=== PATIENT | female | born 1955 | race African-American/Black ===

== ENCOUNTER 2018-07-21 12:23 | Emergency (ER) | payer BC ==
[~2018-07-21] VITALS: Ht 162.6 cm; Wt 132.0 kg
[2018-07-21] MEDS ORDERED: AMLO5TAB4 PO (12:35)
[2018-07-21] MEDS ORDERED: ATEN50TA PO (12:35)
[2018-07-21] MEDS ORDERED: AMLODIPINE 5MG TABLET PO ONE (13:00)
[2018-07-21 13:14] LABS: BASOPHILS % 0.8 % (0.0-2.0); EOSINOPHILS % 0.3 % (0.0-5.0); HEMATOCRIT. 42.6 % (36.0-48.0); HEMOGLOBIN. 14.2 g/dL (12.0-16.0); LYMPHOCYTES % 17.6 % (20.0-50.0); MEAN CORPUSCULAR HEMOGLOBIN 29.5 pg (28.0-32.0); MEAN CORPUSCULAR VOLUME 88.6 fL (81.0-99.0); MEAN PLATELET VOLUME 7.3 fl (7.4-10.4); MONOCYTES % 7.8 % (2.0-8.0); NEUTROPHILS % 73.5 % (40.0-76.0); PLATELET 300 x1000/uL (130-400); RED BLOOD CELL COUNT 4.81 mill/uL (4.2-5.4); RED CELL DISTRIBUTION WIDTH 13.8 % (11.6-14.6)
[2018-07-21 13:17] LABS: CHLORIDE 105 mEq/L (98-107)
[2018-07-21 16:15] VITALS: BP 182/94
== END 2018-07-21 16:17 | disposition home or self-care (01) ==
LOC: ER 12:23
DX: I16.0 Hypertensive urgency (principal); I10 Essential (primary) hypertension; Z88.8 Allergy status to other drugs, medicaments and biological substances
CPT/HCPCS: 36415; 71045; 93005; 99284